=== PATIENT | male | born 1985 | race Caucasian/White ===

== ENCOUNTER 2017-09-07 14:31 | Outpatient (RCR) | payer BC | END 2017-12-06 | LOC: MKS.ESL.PT | DX: M54.2 Cervicalgia (principal) | CPT/HCPCS: G0283-GP ==

== ENCOUNTER 2022-01-17 08:30 | Outpatient (RCR) | payer OTHER | END 2022-01-22 | disposition home or self-care (01) | LOC: MKS.ESL.PT | DX: S42.001D Fracture of unspecified part of right clavicle, subsequent encounter for fracture with routine healing (principal); Z98.890 Other specified postprocedural states; V86.56XD Driver of dirt bike or motor/cross bike injured in nontraffic accident, subsequent encounter ==

== ENCOUNTER 2022-01-26 08:06 | Outpatient (RCR) | payer OTHER | END 2022-02-22 | disposition home or self-care (01) | LOC: MKS.ESL.PT | DX: S42.001D Fracture of unspecified part of right clavicle, subsequent encounter for fracture with routine healing (principal); Z98.890 Other specified postprocedural states; V89.2XXD Person injured in unspecified motor-vehicle accident, traffic, subsequent encounter ==

== ENCOUNTER 2022-05-11 10:00 | Outpatient (RCR) | payer OTHER | END 2022-05-25 | disposition home or self-care (01) | LOC: MKS.ESL.PT | DX: S42.021D Displaced fracture of shaft of right clavicle, subsequent encounter for fracture with routine healing (principal); T84.218D Breakdown (mechanical) of internal fixation device of other bones, subsequent encounter; X58.XXXD Exposure to other specified factors, subsequent encounter ==